=== PATIENT | female | born 1980 | race Caucasian/White ===

== ENCOUNTER 2020-05-06 02:43 | Outpatient (CLI) | payer OTHER, SELFPAY ==
[2020-05-06 19:52] LABS: SARS-CoV-2 RNA PCR Negative
== END 2020-05-06 02:44 | disposition home or self-care (01) ==
LOC: ANHCOVIDDT 02:44
PROVIDERS: PCP Internal Medicine; Visit Provider Obstetrics & Gynecology Gynecology
DX: Z01.812 Encounter for preprocedural laboratory examination (principal); Z20.828 Contact with and (suspected) exposure to other viral communicable diseases
CPT/HCPCS: 87635; C9803; U0003

== ENCOUNTER 2020-05-09 01:13 | Day surgery (SDC) | payer OTHER, SELFPAY ==
[2020-05-03 13:15] VITALS: BMI 28.1
--- NOTE | 2020-05-09 07:07 | WPDANESEPPF ---
Anes - Initial Pre Proc Eval Procedure: Operation Date: 05/09/20 09:00 Proposed Procedures p Hysteroscopy, Dilation And Curettage - Debra Lopez MD Date/Time: 05/09/20 07:07 Surgeon: Debra Lopez MD Pre Op Diagnosis: Menorrhagia Patient Data Age: 40 Gender: F Height: 1.73 m Weight: 84 kg Allergies Allergy/AdvReac Type Severity Reaction Status Date / Time No Known Allergies Allergy Verified 05/09/20 07:47 Home Medications Medication Instructions Recorded Confirmed Type diclofenac potassium [Cambia] 50 mg PO DAILY PRN 05/03/20 05/09/20 History fluoxetine 20 mg PO DAILY 05/03/20 05/09/20 History fluoxetine 40 mg PO DAILY 05/03/20 05/09/20 History gabapentin 600 mg PO BID 05/03/20 05/09/20 History qizvvafvwwun-qps-scdk-FA-vit K 1 tablet PO DAILY 05/03/20 05/09/20 History [Adults Multivitamin] valacyclovir 1,000 mg PO DAILY PRN 05/03/20 05/09/20 History verapamil 180 mg PO HS 05/03/20 05/09/20 History Patient hx anesthesia problems: none Family hx anesthesia problems: none PMFSH Past Medical History Medical History (Updated 05/09/20 @ 08:03 by Debra Lopez MD) Anxiety Breast cancer 2018 B mastectomy Depression Elevated cholesterol Fracture of right tibia and fibula 3 surgeries to fully repair (normal spontaneous vaginal delivery) 2007 2010- Surgical History Surgical History (Updated 05/09/20 @ 08:02 by Debra Lopez MD) S/P LEEP 2004 TALON III with -margins Social History Social History Years smoked: 10 Smoking status: Former smoker Smoking end date: 05/03/08 Additional smoking assessment comments: 1 pack a week. Living arrangements: with family Spiritual care concerns: No Anes - Eval Final PreProcedure Day of Procedure 05/09/20 07:07 Patient weight: overweight Heart: regular rate and rhythm Lungs: clear to auscultation and normal air movement Airway: Mallampati scale class III Neurological: alert and oriented Last oral intake: >/= 8 hours ASA classification: II Emergent: no Anesthetic plan: proceed Anesthesia type and monitoring: general GIVS and standard monitoring Informed Consent: The patient's anesthetic plan and its attendant risks and benefits were discussed with the patient/family/POA. Questions were solicited and answers provided to the satisfaction of the patient/family/POA.
[2020-05-09 07:18] VITALS: BP 116/72; PULSE 72; RESP 18; TEMP 36.3; O2SAT 100
[2020-05-09] MEDS: ACETAMINOPHEN 500 MG TABLET 1000 MG PO (07:35)
--- NOTE | 2020-05-09 07:37 | WPDHPUPDATE1 ---
History and Physical Update Update Date/Time: 05/09/20 07:37 History and Physical has been reviewed, including an updated exam of the patient. There are NO changes in the patient's condition. Risks, benefits, and alternatives have been discussed and questions answered. Patient agrees to proceed with procedure.
--- NOTE | 2020-05-09 07:37 | P.HP_ITS ---
History of Present Illness History of Present Illness Consent: Risks, benefits, and alternatives have been discussed and questions answered. Patient agrees to proceed with procedure. Chief complaint: Menorrhagia Narrative: Eduin Thacker is a 40 year old female with bleeding about every 10-14 days. Initially, had paragard IUD placed 05/12 and had no change in bleeding. Patient with change in cycles 03/13. Normal pelvic u/s. IUD removed 04/05/20 and observed. She continued to have cycles q 10-14 days and recommended to proceed with hysteroscopy. Reviewed risks of infection, bleeding, and perforation. Possible pathology also discussed. Patient voiced understanding and agrees to proceed. [facility] Past Medical History Medical History (Updated 05/09/20 @ 08:03 by Debra Lopez MD) Anxiety Breast cancer 2017 B mastectomy Depression Elevated cholesterol Fracture of right tibia and fibula 3 surgeries to fully repair (normal spontaneous vaginal delivery) 2007 2010-preeclampsia Surgical History Surgical History (Updated 05/09/20 @ 08:02 by Debra Lopez MD) S/P LEEP 2003 TALON III with -margins Social History Social History Years smoked: 10 Smoking status: Former smoker Smoking end date: 05/03/08 Additional smoking assessment comments: 1 pack a week. Living arrangements: with family Spiritual care concerns: No Meds Home Medications and Allergies Home Medications Medication Instructions Recorded Confirmed Type diclofenac potassium [Cambia] 50 mg PO DAILY PRN 05/03/20 05/03/20 History fluoxetine 20 mg PO DAILY 05/03/20 05/03/20 History fluoxetine 40 mg PO DAILY 05/03/20 05/03/20 History gabapentin 600 mg PO BID 05/03/20 05/03/20 History jswhhtelilds-mkw-kxxi-FA-vit K 1 tablet PO DAILY 05/03/20 05/03/20 History [Adults Multivitamin] valacyclovir 1,000 mg PO DAILY PRN 05/03/20 05/03/20 History verapamil 180 mg PO HS 05/03/20 05/03/20 History Allergies Allergy/AdvReac Type Severity Reaction Status Date / Time No Known Allergies Allergy Verified 05/09/20 07:47 Exam Const: General: comfortable and no acute distress GI: GI Palp: No abdominal tenderness, Yes Soft to palpation and No Palpable mass present : External Female Exam: normal external appearance Speculum Exam - Vagina: normal appearance of the vagina Speculum Exam - Cervix: normal appearance of the cervix Bimanual exam- vagina & uterus: normal bimanual exam Bimanual Exam- Adnexa, other: normal adnexae Assessment and Plan Assessment and plan (1) Menorrhagia: Code(s): N92.0 - Excessive and frequent menstruation with regular cycle Status: Acute Assessment and Plan: Plan to proceed with hysteroscopy and D&C
[2020-05-09] MEDS: LACTATED RINGERS 1,000 ML 30 ML IV CONT (07:40)
[2020-05-09] MEDS: LIDOCAINE HCL 1% LOCAL INJ 20 ML VIAL 10 ML INFILTRATE (09:06)
--- NOTE | 2020-05-09 09:33 | P.OP_ITS ---
Procedure Note - Detailed Date of procedure: 05/09/20 Pre-op diagnosis: Menorrhagia Post-op diagnosis: same Procedure performed: Hysteroscopy with D&C Description of procedure: The patient was taken to the operating room placed under anesthesia in the dorsal lithotomy position. She was prepped and draped in the usual sterile fashion. [place] speculum was placed in the vagina and the cervix is grasped on the anterior lip with a tenaculum. The cervix is injected with 1% lidocaine in each quadrant. The uterus is sounded to 7cm. The diagnostic hysteroscope was placed with the stated findings. Hysteroscope was removed and medium sharp curette is used to curette the endometrium until a good uterine cry was noted in all areas. All instruments are removed. Patient taken to recovery in stable condition. Anesthesia: MAC and local Surgeon: Debra Lopez MD Estimated blood loss (mL): 5 Drains: No Packing: No Pathology: yes ( endometrial curettings) Complications: No immediate complications Condition: stable Disposition: PACU Findings: uterus sounds to 7cm and appears grossly normal
[2020-05-09 09:34] VITALS: BP 113/69; PULSE 69; RESP 14; O2SAT 94
[2020-05-09] MEDS: fentaNYL CITRATE INJ (*CRX) 100 MCG/2 ML VIAL 25 MCG IV PUSH ×4 (09:46→10:00)
[2020-05-09 10:04] VITALS: BP 108/67; PULSE 60; RESP 14; O2SAT 96
[2020-05-09] MEDS: oxyCODONE HCL (*CRX) 5 MG TAB IR PO (10:20)
[2020-05-09 10:34] VITALS: BP 117/63; PULSE 59; RESP 14
[2020-05-09 10:45] VITALS: BP 103/64; PULSE 71; RESP 14
== END 2020-05-09 11:00 | disposition home or self-care (01) ==
PROVIDERS: PCP Internal Medicine; Visit Provider Obstetrics & Gynecology Gynecology
PROC: 0U5B8ZZ Destruction of Endometrium, Via Natural or Artificial Opening Endoscopic (ICD-10-PCS; CPT 58563; principal; 2020-05-09 09:00)
DX: N92.0 Excessive and frequent menstruation with regular cycle (principal); E78.00 Pure hypercholesterolemia, unspecified; F41.8 Other specified anxiety disorders; Z85.3 Personal history of malignant neoplasm of breast; Z87.891 Personal history of nicotine dependence
CPT/HCPCS: 58558; 88305; A9270; J1885; J2250; J2405; J2704; J3010; J7030; J7120

== ENCOUNTER 2020-06-24 00:47 | Outpatient (CLI) | payer OTHER, SELFPAY ==
[2020-06-24 18:38] LABS: SARS-CoV-2 RNA PCR Positive
== END 2020-06-24 00:48 | disposition home or self-care (01) ==
LOC: ANHCOVIDDT 00:48
PROVIDERS: PCP Internal Medicine; Visit Provider Obstetrics & Gynecology Gynecology
DX: U07.1 COVID-19 (principal)
CPT/HCPCS: C9803; U0003

== ENCOUNTER 2020-07-25 00:37 | Day surgery (SDC) | payer OTHER, SELFPAY ==
[2020-06-15 10:47] VITALS: BMI 28.1
--- NOTE | 2020-06-26 10:00 | SUR.PREOP ---
Dr Lopez contacted about positive Covid results, states will cancel case until a later date, patient called and informed and instructed to follow up with the office, understanding stated.
--- NOTE | 2020-07-20 09:16 | PC.NURSE ---
07-18-2020 at 1510 Patient tested positive for covid 19 on 06-24-2020, had mild symptoms for 1 week and has been without symptoms since. No repeat covid needed according to current standards.
[2020-07-25] VITALS (15 sets, daily range): BP systolic 106–124; BP diastolic 52–79; PULSE 62–103; RESP 12–20; TEMP 36.3–36.9; O2SAT 93–100
--- NOTE | 2020-07-25 07:21 | WPDANESEPPF ---
Anes - Initial Pre Proc Eval Procedure: Operation Date: 07/25/20 08:15 Proposed Procedures p Hysteroscopy With Sury Ablation - Debra Lopez MD s Laparoscopic Bilateral Tubal Ligation With Fallopian Rings - Debra Lopez MD Date/Time: 07/25/20 07:21 Surgeon: Debra Lopez MD Pre Op Diagnosis: menorrhagia, desires sterilization Patient Data Age: 40 Gender: F Height: 1.73 m Weight: 83.91 kg Allergies Allergy/AdvReac Type Severity Reaction Status Date / Time No Known Allergies Allergy Verified 07/18/20 15:13 Home Medications Medication Instructions Recorded Confirmed Type diclofenac potassium [Cambia] 50 mg PO DAILY PRN 05/03/20 06/15/20 History fluoxetine 20 mg PO DAILY 05/03/20 06/15/20 History fluoxetine 40 mg PO DAILY 05/03/20 06/15/20 History gabapentin 600 mg PO BID 05/03/20 06/15/20 History kuyirhtiddkh-xzi-hegy-FA-vit K 1 tablet PO DAILY 05/03/20 06/15/20 History [Adults Multivitamin] valacyclovir 1,000 mg PO DAILY PRN 05/03/20 06/15/20 History verapamil 180 mg PO HS 05/03/20 06/15/20 History Patient hx anesthesia problems: none Family hx anesthesia problems: none PMFSH Past Medical History Medical History (Updated 05/09/20 @ 08:03 by Debra Lopez MD) Anxiety Breast cancer 2018 B mastectomy Depression Elevated cholesterol Fracture of right tibia and fibula 3 surgeries to fully repair (normal spontaneous vaginal delivery) 2007 2010- Surgical History Surgical History (Updated 05/09/20 @ 08:02 by Debra Lopez MD) S/P LEEP 2004 TALON III with -margins Social History Social History Smoking packs per day: 0.5 Smoking cigarettes per day: 10.0 Years smoked: 10 Smoking pack-years: 5.00 Smoking status: Former smoker Tobacco type: cigarettes Second hand tobacco smoke exposure: No Smoking end date: 05/03/08 Additional smoking assessment comments: 1 pack a week. Alcohol intake: current Drinks per week: 5 Substance use: never Last use: 2007 Living arrangements: with family Spiritual care concerns: No Anes - Eval Final PreProcedure Day of Procedure 07/25/20 07:21 Patient weight: overweight Heart: regular rate and rhythm Lungs: clear to auscultation and normal air movement Airway: Mallampati scale class II Neurological: alert and oriented Last oral intake: >/= 8 hours ASA classification: III Emergent: no Anesthetic plan: proceed Anesthesia type and monitoring: general GIVS and LMA Informed Consent: The patient's anesthetic plan and its attendant risks and benefits were discussed with the patient/family/POA. Questions were solicited and answers provided to the satisfaction of the patient/family/POA.
--- NOTE | 2020-07-25 07:26 | WPDANESEPPF ---
Anes - Initial Pre Proc Eval Procedure: Operation Date: 07/25/20 08:15 Proposed Procedures p Hysteroscopy With Sury Ablation - Debra Lopez MD s Laparoscopic Bilateral Tubal Ligation With Fallopian Rings - Debra Lopez MD Date/Time: 07/25/20 07:26 Surgeon: Debra Lopez MD Pre Op Diagnosis: menorrhagia, desires sterilization Patient Data Age: 40 Gender: F Height: 1.73 m Weight: 83.91 kg Allergies Allergy/AdvReac Type Severity Reaction Status Date / Time No Known Allergies Allergy Verified 07/18/20 15:13 Home Medications Medication Instructions Recorded Confirmed Type diclofenac potassium [Cambia] 50 mg PO DAILY PRN 05/03/20 06/15/20 History fluoxetine 20 mg PO DAILY 05/03/20 06/15/20 History fluoxetine 40 mg PO DAILY 05/03/20 06/15/20 History gabapentin 600 mg PO BID 05/03/20 06/15/20 History mipvtifgsqda-gbm-sugi-FA-vit K 1 tablet PO DAILY 05/03/20 06/15/20 History [Adults Multivitamin] valacyclovir 1,000 mg PO DAILY PRN 05/03/20 06/15/20 History verapamil 180 mg PO HS 05/03/20 06/15/20 History Patient hx anesthesia problems: none Family hx anesthesia problems: none PMFSH Past Medical History Medical History (Updated 05/09/20 @ 08:03 by Debra Lopez MD) Anxiety Breast cancer 2018 B mastectomy Depression Elevated cholesterol Fracture of right tibia and fibula 3 surgeries to fully repair (normal spontaneous vaginal delivery) 2007 2010- Surgical History Surgical History (Updated 05/09/20 @ 08:02 by Debra Lopez MD) S/P LEEP 2004 TALON III with -margins Social History Social History Smoking packs per day: 0.5 Smoking cigarettes per day: 10.0 Years smoked: 10 Smoking pack-years: 5.00 Smoking status: Former smoker Tobacco type: cigarettes Second hand tobacco smoke exposure: No Smoking end date: 05/03/08 Additional smoking assessment comments: 1 pack a week. Alcohol intake: current Drinks per week: 5 Substance use: never Last use: 2007 Living arrangements: with family Spiritual care concerns: No Anes - Eval Final PreProcedure Day of Procedure 07/25/20 07:26 Patient weight: overweight Heart: regular rate and rhythm Lungs: clear to auscultation and normal air movement Airway: Mallampati scale class II Neurological: alert and oriented Last oral intake: >/= 8 hours ASA classification: II Emergent: no Anesthetic plan: proceed Anesthesia type and monitoring: general GIVS and LMA Informed Consent: The patient's anesthetic plan and its attendant risks and benefits were discussed with the patient/family/POA. Questions were solicited and answers provided to the satisfaction of the patient/family/POA.
--- NOTE | 2020-07-25 07:37 | WPDHPUPDATE1 ---
History and Physical Update Update Date/Time: 07/25/20 07:37 History and Physical has been reviewed, including an updated exam of the patient. There are NO changes in the patient's condition. Risks, benefits, and alternatives have been discussed and questions answered. Patient agrees to proceed with procedure.
--- NOTE | 2020-07-25 07:37 | PM.HPGS ---
History of Present Illness History of Present Illness Consent: Risks, benefits, and alternatives have been discussed and questions answered. Patient agrees to proceed with procedure. Chief complaint: menorrhagia, desires sterilization Narrative: Eduin Thacker is a 40 year old female with heavy irregular and heavy bleeding. Hysteroscopy and endometrial biopsy were benign. Patient given options and chooses to proceed with endometrial ablation. In addition, she has completed her childbearing and plans laparoscopic BTL. Risks of infection, bleeding, perforation, injury to internal organs, failure of BTL with ectopic risk, and failure of ablation were reviewed. Patient is aware this is a permanent and irreversible sterilizing procedure and agrees to proceed. [facility] Past Medical History Medical History (Updated 07/25/20 @ 07:42 by Debra Lopez MD) Anxiety Breast cancer 2017 B mastectomy Depression Elevated cholesterol Fracture of right tibia and fibula 3 surgeries to fully repair (normal spontaneous vaginal delivery) 2007 2010-preeclampsia Status post hysteroscopy 05/13 Surgical History Surgical History (Updated 05/09/20 @ 08:02 by Debra Lopez MD) S/P LEEP 2004 TALON III with -margins Social History Social History Smoking packs per day: 0.5 Smoking cigarettes per day: 10.0 Years smoked: 10 Smoking pack-years: 5.00 Smoking status: Former smoker Tobacco type: cigarettes Second hand tobacco smoke exposure: No Smoking end date: 05/03/08 Additional smoking assessment comments: 1 pack a week. Alcohol intake: current Drinks per week: 5 Substance use: never Last use: 2007 Living arrangements: with family Spiritual care concerns: No Meds Home Medications and Allergies Home Medications Medication Instructions Recorded Confirmed Type diclofenac potassium [Cambia] 50 mg PO DAILY PRN 05/03/20 06/15/20 History fluoxetine 20 mg PO DAILY 05/03/20 06/15/20 History fluoxetine 40 mg PO DAILY 05/03/20 06/15/20 History gabapentin 600 mg PO BID 05/03/20 06/15/20 History oheliuzhcwsq-rso-ekai-FA-vit K 1 tablet PO DAILY 05/03/20 06/15/20 History [Adults Multivitamin] valacyclovir 1,000 mg PO DAILY PRN 05/03/20 06/15/20 History verapamil 180 mg PO HS 05/03/20 06/15/20 History Allergies Allergy/AdvReac Type Severity Reaction Status Date / Time No Known Allergies Allergy Verified 07/25/20 07:37 Exam Const: General: healthy appearing and alert Orientation/consciousness: patient oriented x3 Resp: Effort & Inspection: normal respiratory effort Auscultation: clear to auscultation bilaterally Cardio: Rate: regular rate Rhythm: regular rhythm GI: GI Palp: Yes Soft to palpation, No Tenderness to palpation present (GI) and No Palpable mass present : External Female Exam: normal external appearance Speculum Exam - Vagina: normal appearance of the vagina and normal vaginal discharge Speculum Exam - Cervix: normal appearance of the cervix Bimanual exam- vagina & uterus: uterine size normal and consistency normal Bimanual Exam- Adnexa, other: normal adnexae and No adnexal tenderness Neuro: General: patient oriented x3 Assessment and Plan Assessment and plan (1) Menorrhagia: Code(s): N92.0 - Excessive and frequent menstruation with regular cycle Status: Acute Assessment and Plan: plan endometial ablation with Sury device (2) Encounter for sterilization: Code(s): Z30.2 - Encounter for sterilization Status: Acute Assessment and Plan: plan laparoscopic BTL with falope rings
[2020-07-25] MEDS: ACETAMINOPHEN 500 MG TABLET 1000 MG PO (07:41)
[2020-07-25] MEDS: LACTATED RINGERS 1,000 ML 30 ML IV CONT ×2 (07:50→09:44)
[2020-07-25] MEDS: KETOROLAC 15 MG/ML VIAL (*BKC) IV PUSH ×2 (07:51→10:47)
--- NOTE | 2020-07-25 09:34 | SUR.OPER ---
350ml ns in, 320ml ns out. aware
--- NOTE | 2020-07-25 09:35 | PM.PROC ---
Procedure Note - Detailed Date of procedure: 07/25/20 Pre-op diagnosis: menorrhagia, desires sterilization Post-op diagnosis: same Procedure performed: laparoscopic BTL with falope rings; I&D right ovarian hemorraghic cyst; Sury endometrial ablation Description of procedure: The patient was taken to the operating room and placed under general anesthesia in the dorsal lithotomy position. She is prepped and draped in the usual sterile fashion. Bladder is drained with a red rubber catheter. [place] speculum was placed in the vagina and the cervix is grasped on the anterior lip with a tenaculum. The acorn manipulator is placed, the speculum is removed, and attention was returned to the abdomen. A vertical skin incision is made at the base of the umbilicus. Veress needle is placed while tenting the abdomen. Water drop test is normal and opening patient pressure is 5mmHg. Pneumoperitoneum was obtained to a patient pressure of 15mmHg. The Veress needle is removed and the 5mm Optiview trocar is placed. Intra-abdominal placement is confirmed with the laparoscope. The patient is placed in Trendelenburg and an 8mm trocar was placed under direct visualization. The blunt probe was used to bring the tubes into the visual field. The ring applicator was used to grasp the left tube, a good loop of tube was brought up into the applicator, and the ring was applied. The identical procedure was performed on the right side. The pinpoint cautery is used to open a 1cm area of the right ovarian hemorrhagic cyst. This is drained of clear fluid. The edges are bleeding and cauterized using the pinpoint cautery. The laparoscoped was left in place and the abdomen covered with a sterile towel. Attention is turned to the ablation. The bivalve speculum is replaced the acorn manipulator was removed. The uterus is sounded to 7cm. The cervix is serially dilated with [place]. The diagnostic hysteroscope was placed with a normal-appearing endometrium noted. The manner of a devices opened and placed. Cavity assessment passed on the 1st attempt. The device is set at 4.5cm. Treatment cycle lasted the full 2 minutes. The device is removed, the acorn manipulator was replaced, and the speculum is removed. Attention is return to the abdomen. Using the blunt probe, the ovary is elevated and observed the bleeding appears to have stopped completely. The trocars are removed and the incisions closed using 4 0 nylon in interrupted fashion. Vaginal instruments are removed. The patient is awakened from anesthesia and taken to the recovery room in stable condition. Sponge, instrument, and needle counts are correct per the OR staff. Anesthesia: GETA Surgeon: Debra Lopez MD Estimated blood loss (mL): 25 Drains: No Packing: No Pathology: none sent Complications: No immediate complications Condition: stable Disposition: PACU Findings: uterus 7 cm; grossly normal appearing; tubes, left ovary normal appearing; right ovary with hemorraghic cyst
[2020-07-25] MEDS: fentaNYL CITRATE INJ (*CRX) 100 MCG/2 ML VIAL 25 MCG IV PUSH ×7 (09:50→13:27)
[2020-07-25] MEDS: HYDROmorphone HCL INJ (*CRX) 1 MG/ML SYR 0.25 MG IV PUSH ×8 (10:03→10:38)
[2020-07-25] MEDS: HYDROmorphone HCL INJ (*CRX) 1 MG/ML SYR 0.5 MG IV PUSH ×4 (10:49→11:14)
[2020-07-25] MEDS: oxyCODONE HCL (*CRX) 5 MG TAB IR PO (11:57)
--- NOTE | 2020-07-25 14:29 | SUR.PHASEII ---
Patient is all dressed and just waiting for ride.
== END 2020-07-25 14:37 | disposition home or self-care (01) ==
PROVIDERS: PCP Internal Medicine; Visit Provider Obstetrics & Gynecology Gynecology
PROC: 0U5B8ZZ Destruction of Endometrium, Via Natural or Artificial Opening Endoscopic (ICD-10-PCS; CPT 58563; principal; 2020-07-25 08:15)
PROC: (CPT 58671; 2020-07-25 08:15)
DX: Z30.2 Encounter for sterilization (principal); F41.9 Anxiety disorder, unspecified; F32.9 Major depressive disorder, single episode, unspecified; E78.00 Pure hypercholesterolemia, unspecified; Z87.891 Personal history of nicotine dependence
CPT/HCPCS: 58671; 58563; 58662; A4264; A9270; J1170; J1885; J2250; J3010; J7030; J7120